=== PATIENT | male | born 1980 ===

== ENCOUNTER 2017-05-22 06:43 | Emergency (ER) | payer BC, OTHER ==
[2017-05-22 06:43] VITALS: BMI 36.9
[2017-05-22 07:39] VITALS: TEMP 98.2
[2017-05-22] MEDS ORDERED: Sodium Chloride 0.9% 1,000 ML IV STA (08:03)
--- NOTE | 2017-05-22 08:08 | ED PDOC ---
Arrival/HPI - General Chief Complaint: Medical Clearance Time Seen by Provider: 05/22/17 08:01 Historian: Patient - History of Present Illness Narrative History of Present Illness (Text): 05/22/17 08:01 Riley Montano is a 37 year old male complaining of right-sided facial swelling for 3 days. Patient denies any fevers, chills, mouth pain or discomfort , or any other any other complaints at this time. PMD: Dr. Newton Time/Duration: < week Symptom Onset: Gradual Symptom Course: Unchanged Severity Level: Mild Activities at Onset: Light Context: Home Past Medical History - Provider Review Nursing Documentation Reviewed: Yes - Infectious Disease Hx of Infectious Diseases: None - Tetanus Immunization Tetanus Immunization: Unknown - Past Medical History Past Medical History: No Previous - Cardiac Hx Hypertension: Yes (no compliant with medication) - Pulmonary Hx Respiratory Disorders: No - Neurological Hx Neurological Disorder: No - HEENT Hx HEENT Disorder: No - Renal Hx Renal Disorder: No - Endocrine/Metabolic Hx Endocrine Disorders: No - Hematological/Oncological Hx Blood Disorders: No - Integumentary Hx Dermatological Disorder: No - Musculoskeletal/Rheumatological Hx Musculoskeletal Disorders: No - Gastrointestinal Hx Gastrointestinal Disorders: No - Genitourinary/Gynecological Hx Genitourinary Disorders: No - Psychiatric Hx Depression: No Hx Emotional Abuse: No Hx Physical Abuse: No Hx Substance Use: No - Past Surgical History Past Surgical History: No Previous - Suicidal Assessment Feels Threatened In Home Enviroment: No Family/Social History - Physician Review Nursing Documentation Reviewed: Yes Family/Social History: No Known Family HX Smoking Status: Light Smoker < 10 Cigarettes Daily Hx Alcohol Use: Yes Frequency of alcohol use: Socially Amount per day: 10 (one bottle of bicardi a day for two years) Hx Substance Use: No Hx Substance Use Treatment: No Allergies/Home Meds Allergies/Adverse Reactions: Allergies No Known Allergies Allergy (Verified 05/22/17 07:41) Physical Exam - Physical Exam Narrative Physical Exam (Text): - Review of Systems Constitutional: absent: Fatigue, Weight Change, Fevers Eyes: Normal ENT: Normal Respiratory: Normal absent: SOB, Cough, Sputum Cardiovascular: Normal absent: Chest pain, Palpitations, Syncope Gastrointestinal: Normal absent: Abdominal pain, Diarrhea, Nausea, Vomiting Genitourinary: Normal. absent: Dysuria, Frequency, Hematuria Musculoskeletal: Normal. absent: Arthralgias, Back Pain, Neck Pain Skin: Normal Neurological: Normal absent: Focal Weakness Endocrine: Normal Hemo/Lymphatic: Normal Psychiatric: Normal - Physical exam Patient appears age appropriate, speaking full sentences without difficulty. - Systems Exam Head: Present: Atraumatic, Normocephalic. No periorbital cellulitis. Swelling around zygoma. Pupils: Present: PERRL Extraocular Muscles: No pain in EOMI Conjunctiva: Present: Normal Mouth: Present: Moist Mucous Membranes. No dental pain or discomfort. Gingiva appears normal. Neck: Present: Normal Range of Motion. No: MIDLINE TENDERNESS, Paraspinal Tenderness Respiratory/Chest: Present: Clear to Auscultation, Good Air Exchange. No: Respiratory Distress, Accessory Muscle Use, Tachypnic Cardiovascular: Present: Regular Rate and Rhythm, Normal S1, S2, Peripheral Pulses Present. No: Murmurs Abdomen: Present: Normal Bowel Sounds, No: Tenderness, Peritoneal Signs, Rebound, Guarding, Distention Back: Present: Normal Inspection. No: Midline Tenderness, Paraspinal Tenderness Upper Extremity: Present: Normal Inspection. No: Cyanosis, Edema Lower Extremity: Present: Normal Inspection. No: Edema Neurological: Present: GCS=15, Speech Normal, cranial nerves II through XII fully intact with no cerebellar abnormality, neuro-sensory fully intact. No focal neurological deficits. Skin: Present: Warm, Dry, Normal Color. No: Rashes Lymphatic: Present: OX3, NI, NC Psychiatric: Present: Alert, Oriented x 3, Normal Insight, Normal Concentration 05/22/17 08:34 Vital Signs Reviewed: Yes Vital Signs Temp Pulse Resp BP Pulse Ox 05/22/17 09:24 66 18 150/82 97 05/22/17 07:34 98.2 F 84 16 143/93 H 96 Temperature: Afebrile Blood Pressure: Hypertensive Pulse: Regular Respiratory Rate: Normal Appearance: Positive for: Well-Appearing, Non-Toxic, Comfortable Pain Distress: None Mental Status: Positive for: Alert and Oriented X 3 Medical Decision Making ED Course and Treatment: 05/22/17 08:00 Impression: 37 year old male complaining of right-sided facial swelling for 3 days. On physical exam, no pain in EOMI, no periorbital cellulitis, and swelling noted around zygoma. Patient denies any dental pain or discomfort. Gingiva appears normal. Differential Diagnosis included but are not limited to: Abscess vs. Cellulitis Plan: -- Maxillofacial CT w/o contrast -- Blood Culture -- Labs -- Cleosin, Toradol, and IV Fluids -- Reassess and disposition Prior Visits: Notes and results from previous visits were reviewed. Patient last seen in the ED on 07/30/14 for left arm weakness that day. Patient was discharged home. Progress Notes: 05/22/17 09:29 CT MAXILLOFACIAL BONES WITHOUT CONTRAST: Dictator : Wes Shepherd MD FINDINGS: NASAL BONES:Unremarkable. ORBITS:Unremarkable. PARANASAL SINUSES/ MASTOIDS:Clear. MAXILLA:Unremarkable. MANDIBLE/ TEMPOROMANDIBULAR JOINTS: There is subcutaneous edema and swelling anterior to the right side of the mandible. There is no evidence of a discrete abscess. There is no bony destruction in the mandible to suggest a dental abscess. SKULL BASE:Unremarkable. TEMPORAL BONES:Middle ears and mastoid grossly unremarkable. OTHER FINDINGS:None. IMPRESSION: There is subcutaneous edema and swelling anterior to the right side of the mandible. There is no evidence of a discrete abscess. There is no bony destruction in the mandible to suggest a dental abscess. 05/22/17 09:41 pt will be dc'd with PO abx instructed to f/u with ENT specialist outpatient pt in no distress, states he feels comfortable being dc'd home with outpatient f /u ENT paged Pt states he understands to return to the ER right away for new or worsening symptoms or for inability to f/u with PMD or specialist as instructed. Patient states that he fully agrees with and understands discharge instructions. States that he agrees with the plan and disposition. Verbalized and repeated discharge instructions and plan. I have given the patient opportunity to ask any additional questions. 05/22/17 09:[address] Spencer, agrees with plan, states for pt to f/u outpatient later this week pt aware of and agrees with plan - Lab Interpretations Lab Results: 05/22/17 08:00 05/22/17 08:00 Lab Results 05/22/17 08:00: Sodium 145, Potassium 4.2, Chloride 107, Carbon Dioxide 24, Anion Gap 18, BUN 8, Creatinine 0.5, Est GFR ( Amer) > 60, Est GFR (Non- Af Amer) > 60, Random Glucose 110, Calcium 9.1, Total Bilirubin 0.4, AST 83 H, ALT 94 H, Alkaline Phosphatase 94, Total Protein 7.6, Albumin 4.5, Globulin 3.1 , Albumin/Globulin Ratio 1.5 05/22/17 08:00: WBC 9.7, RBC 4.71, Hgb 15.9, Hct 45.7, MCV 97.0, MCH 33.8, MCHC 34.8, RDW 13.2, Plt Count 138, MPV 9.8, Gran % 68.4 H, Lymph % (Auto) 21.3 L, Dodge % (Auto) 8.9 H, Eos % (Auto) 1.1 L, Baso % (Auto) 0.3, Gran # 6.66 H, Lymph # 2.1, Dodge # 0.9 H, Eos # 0.1, Baso # 0.03, Corrected WBC (Man) Cancelled , Neutrophils % (Manual) Cancelled, Band Neutrophils % Cancelled, Lymphocytes % (Manual) Cancelled, Atypical Lymphs % Cancelled, Monocytes % (Manual) Cancelled , Eosinophils % (Manual) Cancelled, Basophils % (Manual) Cancelled, Metamyelocytes % Cancelled, Myelocytes % Cancelled, Promyelocytes % Cancelled, Nucleated RBC % Cancelled, Hypersegmented Polys Cancelled, Immature Lymphocytes Cancelled, Blast Cells Cancelled, Smudge Cells Cancelled, Toxic Granulation Cancelled, Dohle Bodies Cancelled, Radha Rods Cancelled, Platelet Evaluation Cancelled, Plt Clumps, EDTA Cancelled, Large Platelets Cancelled, Giant Platelets Cancelled, Polychromasia Cancelled, Hypochromasia Cancelled, Hyperchromasia Cancelled, Poikilocytosis (manual Cancelled, Basophilic Stippling Cancelled, Anisocytosis (manual) Cancelled, Microcytosis (manual) Cancelled, Macrocytosis (manual) Cancelled, Spherocytes Cancelled, Sickle Cells Cancelled, Target Cells Cancelled, Tear Drop Cells Cancelled, Ovalocytes Cancelled, Stomatocytes Cancelled, Helmet Cells Cancelled, Buffalo Rings Cancelled , Kathleen Cells Cancelled, Acanthocytes (Spur) Cancelled, Rouleaux Cancelled, Schistocytes Cancelled I have reviewed the lab results: Yes - RAD Interpretation Radiology Orders: 05/22/17 08:03 MAXILLOFACIAL W/O CONTRAST [CT] Stat - Medication Orders Current Medication Orders: Discontinued Medications Clindamycin Phosphate 600 mg/ (Sodium Chloride) 54 mls @ 108 mls/hr IVPB STAT STA PRN Reason: Protocol Stop: 05/22/17 08:33 Last Admin: 05/22/17 08:25 Dose: 108 mls/hr Sodium Chloride (Sodium Chloride 0.9%) 1,000 mls @ 1,000 mls/hr IV .Q1H STA Stop: 05/22/17 09:02 Last Admin: 05/22/17 08:24 Dose: 1,000 mls/hr Ketorolac Tromethamine (Toradol) 15 mg IVP STAT STA Stop: 05/22/17 08:04 Last Admin: 05/22/17 08:23 Dose: 15 mg - Scribe Statement The provider has reviewed the documentation as recorded by the Jesus Berman Provider Scribe Attestation: All medical record entries made by the Scribe were at my direction and personally dictated by me. I have reviewed the chart and agree that the record accurately reflects my personal performance of the history, physical exam, medical decision making, and the department course for this patient. I have also personally directed, reviewed, and agree with the discharge instructions and disposition. Disposition/Present on Arrival - Present on Arrival Any Indicators Present on Arrival: No History of DVT/PE: No History of Uncontrolled Diabetes: No Urinary Catheter: No History of Decub. Ulcer: No History Surgical Site Infection Following: None - Disposition Have Diagnosis and Disposition been Completed?: Yes Diagnosis: Facial swelling Disposition: HOME/ ROUTINE Disposition Time: 09:42 Patient Plan: Discharge Patient Problems: Current Active Problems Problem Status Onset Facial swelling Acute Condition: GOOD Discharge Instructions (ExitCare): Cellulitis (ED) Additional Instructions: PLEASE RETURN TO THE EMERGENCY DEPARTMENT FOR NEW OR WORSENING SYMPTOMS. RETURN RIGHT AWAY IF YOU CANNOT FOLLOW UP WITH YOUR PRIMARY CARE DOCTOR, CLINIC, OR SPECIALIST IN 1-2 DAYS. Prescriptions: Amoxicillin/Clavulanate [Augmentin 875 MG-125 MG] 1 tab PO BID #14 tab Referrals: Jacob Newton MD [Primary Care Provider] - Follow up with primary Anshul Hyman DO [Staff Provider] - Follow up with primary Forms: [employer] (Angolan), WORK NOTE
[2017-05-22 08:30] LABS: BASO # 0.03 K/mm3 (0.0-2.0); BASO % 0.3 % (0.0-3.0); EOS # 0.1 (0.0-0.7); EOS % 1.1 % (1.5-5.0); GRAN # 6.66 (1.4-6.5); GRAN % 68.4 % (50.0-68.0); HEMATOCRIT 45.7 % (42.0-52.0); LYMPH # 2.1 (1.2-3.4); LYMPH % 21.3 % (22.0-35.0); MEAN CORPUSCULAR HEMOGLOBIN 33.8 pg (25.0-35.0); MEAN CORPUSCULAR HGB CONC 34.8 g/dl (31.0-37.0); MEAN PLATELET VOLUME 9.8 fl (7.0-11.0); MONO # 0.9 (0.1-0.6); MONO % 8.9 % (1.0-6.0); RED CELL DISTRIBUTION WIDTH 13.2 % (11.5-14.5); WHITE BLOOD COUNT 9.7 10^3/ul (4.5-11.0)
[2017-05-22 08:46] LABS: ALB/GLOB RATIO 1.5 (1.1-1.8); ALKALINE PHOSPHATASE 94 U/L (38-133); ALT/SGPT 94 U/L (7-56); AST/SGOT 83 U/L (15-59); BILIRUBIN,TOTAL 0.4 mg/dL (0.2-1.3); BLOOD UREA NITROGEN 8 mg/dL (7-21); CALCIUM 9.1 mg/dL (8.4-10.5); CARBON DIOXIDE 24 mmol/L (21-33); CHLORIDE 107 mmol/L (98-107); GFR AFRICAN-AMERICAN > 60; GLUCOSE,RANDOM 110 mg/dL (70-110); POTASSIUM 4.2 mmol/L (3.6-5.0); SODIUM 145 mmol/L (132-148); TOTAL PROTEIN 7.6 g/dL (5.8-8.3)
--- NOTE | 2017-05-22 09:15 | CT ---
PROCEDURE: CT MAXILLOFACIAL BONES WITHOUT CONTRAST HISTORY: abscess COMPARISON: None TECHNIQUE: Contiguous axial CT images of the maxillofacial bones were obtained. Coronal and sagittal reformats were generated. Radiation dose: Total exam DLP = 737 mGy-cm. This CT exam was performed using one or more of the following dose reduction techniques: Automated exposure control, adjustment of the mA and/or kV according to patient size, and/or use of iterative reconstruction technique. FINDINGS: NASAL BONES: Unremarkable. ORBITS: Unremarkable. PARANASAL SINUSES/ MASTOIDS: Clear. MAXILLA: Unremarkable. MANDIBLE/ TEMPOROMANDIBULAR JOINTS: There is subcutaneous edema and swelling anterior to the right side of the mandible. There is no evidence of a discrete abscess. There is no bony destruction in the mandible to suggest a dental abscess. SKULL BASE: Unremarkable. TEMPORAL BONES: Middle ears and mastoid grossly unremarkable. OTHER FINDINGS: None. IMPRESSION: There is subcutaneous edema and swelling anterior to the right side of the mandible. There is no evidence of a discrete abscess. There is no bony destruction in the mandible to suggest a dental abscess.
[2017-05-22 09:24] VITALS: BP 150/82; PULSE 66; RESP 18; O2SAT 97
== END 2017-05-22 09:56 | disposition home or self-care (01) ==
LOC: ED 06:43
DX: R22.0 Localized swelling, mass and lump, head (principal)
CPT/HCPCS: 70486; 80053; 85025; 87040; 96365; 96375; 99282; J1885; J7040

== ENCOUNTER 2018-01-26 23:11 | Emergency (ER) | payer OTHER ==
[2018-01-26 23:31] VITALS: BMI 34.3
[2018-01-26 23:40] VITALS: BP 138/81; PULSE 91; RESP 16; TEMP 98.4; O2SAT 100
--- NOTE | 2018-01-26 23:42 | ED PDOC ---
Arrival/HPI - General Chief Complaint: Alcohol Ingestion Time Seen by Provider: 01/26/18 23:32 Historian: Patient - History of Present Illness Narrative History of Present Illness (Text): 01/26/18 23:40 38 year old male, with no significant past medical history, presents to the Emergency department for alcohol intoxication tonight. Patient admits to drinking tonight and informs of a laceration located near his left eyebrow. Patient informs hitting his head denies any loss of consciousness. Patient denies any fever, chills, nausea, vomiting, diarrhea, abdominal pain, chest pain , shortness of breath, trauma or any other complaints. Time/Duration: Prior to Arrival Symptom Onset: Gradual Symptom Course: Unchanged Activities at Onset: Light Past Medical History - Provider Review Nursing Documentation Reviewed: Yes - Infectious Disease Hx of Infectious Diseases: None - Tetanus Immunization Tetanus Immunization: Unknown - Past Medical History Past Medical History: No Previous - Cardiac Hx Hypertension: Yes (no compliant with medication) - Pulmonary Hx Respiratory Disorders: No - Neurological Hx Neurological Disorder: No - HEENT Hx HEENT Disorder: No - Renal Hx Renal Disorder: No - Endocrine/Metabolic Hx Endocrine Disorders: No - Hematological/Oncological Hx Blood Disorders: No - Integumentary Hx Dermatological Disorder: No - Musculoskeletal/Rheumatological Hx Musculoskeletal Disorders: No - Gastrointestinal Hx Gastrointestinal Disorders: No - Genitourinary/Gynecological Hx Genitourinary Disorders: No - Psychiatric Hx Depression: No Hx Emotional Abuse: No Hx Physical Abuse: No Hx Substance Use: No - Past Surgical History Past Surgical History: No Previous - Suicidal Assessment Feels Threatened In Home Enviroment: No Family/Social History - Physician Review Nursing Documentation Reviewed: Yes Family/Social History: No Known Family HX Smoking Status: Light Smoker < 10 Cigarettes Daily Hx Alcohol Use: Yes Amount per day: 10 (one bottle of bicardi a day for two years) Hx Substance Use: No Hx Substance Use Treatment: No Allergies/Home Meds Allergies/Adverse Reactions: Allergies No Known Allergies Allergy (Verified 01/26/18 23:31) Home Medications: Home Meds Medication Instructions Recorded Confirmed No Known Home Med 01/26/18 01/26/18 Review of Systems - Physician Review All systems were reviewed & negative as marked: Yes - Review of Systems Constitutional: Other (Intoxicated). absent: Fevers Eyes: Normal ENT: Normal Respiratory: Normal. absent: SOB Cardiovascular: Normal. absent: Chest Pain Gastrointestinal: Normal. absent: Abdominal Pain, Diarrhea, Nausea, Vomiting Genitourinary Male: Normal Musculoskeletal: Normal Skin: Laceration Neurological: Normal. absent: Headache Endocrine: Normal Hemo/Lymphatic: Normal Psychiatric: Normal Physical Exam Vital Signs Reviewed: Yes Vital Signs Temp Pulse Resp BP Pulse Ox 01/26/18 23:39 98.4 F 91 H 16 138/81 100 Temperature: Afebrile Blood Pressure: Normal Pulse: Tachycardic Respiratory Rate: Normal Appearance: Positive for: Well-Appearing, Comfortable Pain Distress: None Mental Status: Positive for: Alert and Oriented X 3 - Systems Exam Head: Present: Atraumatic, Normocephalic Pupils: Present: PERRL Extroacular Muscles: Present: EOMI Conjunctiva: Present: Normal Respiratory/Chest: Present: Clear to Auscultation, Good Air Exchange. No: Respiratory Distress, Accessory Muscle Use Cardiovascular: Present: Regular Rate and Rhythm, Normal S1, S2. No: Murmurs Upper Extremity: Present: Normal Inspection. No: Cyanosis, Edema Lower Extremity: Present: Normal Inspection. No: Edema Neurological: Present: GCS=15, CN II-XII Intact, Speech Normal Skin: Present: Warm, Dry, Normal Color, Laceration (left eyebrow). No: Rashes Psychiatric: Present: Alert, Oriented x 3, Intoxicated Medical Decision Making ED Course and Treatment: 01/26/18 23:44 Impression: 38 year old male presents to the Emergency department for alcohol intoxication and left eyebrow laceration. Plan: -- CT of Head -- Reassess and disposition Progress Notes: 01/27/18 01:43 CT of head reviewed by radiologist, shows: FINDINGS: Limitations: Motion artifact - mild. Brain: Mild atrophy. No definite intracranial hemorrhage. No mass. No definite edema. Ventricles: No hydrocephalus. Bones/joints: No acute fracture. Soft tissues: LEFT frontal/periorbital soft tissue swelling. Tiny calcification or foreign body along left periorbital region. Sinuses: Scattered minimal mucosal thickening. Mastoid air cells: No mastoid effusion. Orbits: Unremarkable as visualized. IMPRESSION: 1. No definite intracranial hemorrhage. 2. Incidental/non-acute findings are described above 01/27/18 03:13 Upon reassessment, patient was observed to have an abrasion instead of a laceration on his left eyebrow. No foreign body object was identified. - RAD Interpretation Radiology Orders: 01/26/18 23:36 HEAD W/O CONTRAST [CT] Stat - Scribe Statement The provider has reviewed the documentation as recorded by the Scribe Feroz Davidson. All medical record entries made by the Scribe were at my direction and personally dictated by me. I have reviewed the chart and agree that the record accurately reflects my personal performance of the history, physical exam, medical decision making, and the department course for this patient. I have also personally directed, reviewed, and agree with the discharge instructions and disposition. Disposition/Present on Arrival - Present on Arrival Any Indicators Present on Arrival: No History of DVT/PE: No History of Uncontrolled Diabetes: No Urinary Catheter: No History of Decub. Ulcer: No History Surgical Site Infection Following: None - Disposition Have Diagnosis and Disposition been Completed?: Yes Diagnosis: Head injury, Abrasion head Disposition: HOME/ ROUTINE Disposition Time: 03:15 Condition: GOOD Discharge Instructions (ExitCare): Closed Head Injury (DC), Skin Abrasions (DC) Referrals: Bharat Matrimonyestrella Miller, [Primary Care Provider] - Follow up with primary Forms: [employer] (Thai)
--- NOTE | 2018-01-27 01:42 | CT ---
EXAM: CT Head Without Intravenous Contrast CLINICAL HISTORY: 38 years old, male; Injury or trauma; Injury Head injury; Initial encounter; Abrasion; Forehead and head, generalized TECHNIQUE: Axial computed tomography images of the head/brain without intravenous contrast. All CT scans at this facility use one or more dose reduction techniques, viz.: automated exposure control; ma/kV adjustment per patient size (including targeted exams where dose is matched to indication; i.e. head); or iterative reconstruction technique. Coronal and sagittal reformatted images were created and reviewed. COMPARISON: No relevant prior studies available. FINDINGS: Limitations: Motion artifact - mild. Brain: Mild atrophy. No definite intracranial hemorrhage. No mass. No definite edema. Ventricles: No hydrocephalus. Bones/joints: No acute fracture. Soft tissues: LEFT frontal/periorbital soft tissue swelling. Tiny calcification or foreign body along left periorbital region. Sinuses: Scattered minimal mucosal thickening. Mastoid air cells: No mastoid effusion. Orbits: Unremarkable as visualized. IMPRESSION: 1. No definite intracranial hemorrhage. 2. Incidental/non-acute findings are described above.
== END 2018-01-27 03:14 | disposition home or self-care (01) ==
LOC: ED 23:11
DX: S00.91XA Abrasion of unspecified part of head, initial encounter (principal); X58.XXXA Exposure to other specified factors, initial encounter; F17.210 Nicotine dependence, cigarettes, uncomplicated; I10 Essential (primary) hypertension

== ENCOUNTER 2018-10-21 09:57 | Emergency (ER) | payer OTHER ==
[2018-10-21 09:59] VITALS: BMI 33.4
--- NOTE | 2018-10-21 10:30 | ED PDOC ---
Arrival/HPI - General Chief Complaint: Alcohol Ingestion Time Seen by Provider: 10/21/18 10:24 Historian: Patient - History of Present Illness Narrative History of Present Illness (Text): 10/21/18 10:25 38 y/o male, pmh including htn, nkda, biba for etoh intoxication at the counselor office x 2 hours (as per patient). Pt. stated that he drinks socially, went to the counselor about his drinking habit, doesn't get tremors/shakes /nausea/vomiting/diarrhea when not drinking, just wanna hear advice from the counselor. Counselor send the patient here to the ER as he is intoxicated and unable to drive himself home. Pt. has htn, didn't take his medication today so he is here. Pt. is not having any dental pain in the ER, no jaw pain or swelling, has pain medication at home for his toothache and antibiotic. Past Medical History - Provider Review Nursing Documentation Reviewed: Yes - Infectious Disease Hx of Infectious Diseases: None - Tetanus Immunization Tetanus Immunization: Unknown - Past Medical History Past Medical History: No Previous - Cardiac Hx Cardiac Disorders: Yes Hx Hypertension: Yes (no compliant with medication) - Pulmonary Hx Respiratory Disorders: No - Neurological Hx Neurological Disorder: No - HEENT Hx HEENT Disorder: No - Renal Hx Renal Disorder: No - Endocrine/Metabolic Hx Endocrine Disorders: No - Hematological/Oncological Hx Blood Disorders: No - Integumentary Hx Dermatological Disorder: No - Musculoskeletal/Rheumatological Hx Musculoskeletal Disorders: No - Gastrointestinal Hx Gastrointestinal Disorders: No - Genitourinary/Gynecological Hx Genitourinary Disorders: No - Psychiatric Hx Psychophysiologic Disorder: No Hx Substance Use: No - Past Surgical History Past Surgical History: No Previous - Suicidal Assessment Feels Threatened In Home Enviroment: No Family/Social History - Physician Review Nursing Documentation Reviewed: Yes Family/Social History: Unknown Family HX Smoking Status: Light Smoker < 10 Cigarettes Daily Hx Alcohol Use: Yes Frequency of alcohol use: Few days per week Amount per day: 10 (one bottle of bicardi a day for two years) Hx Substance Use: No Hx Substance Use Treatment: No Allergies/Home Meds Allergies/Adverse Reactions: Allergies No Known Allergies Allergy (Verified 10/21/18 09:59) Home Medications: Home Meds Medication Instructions Recorded Confirmed No Known Home Med 01/26/18 10/21/18 Review of Systems - Review of Systems Constitutional: absent: Fatigue, Fevers Eyes: absent: Vision Changes Respiratory: absent: SOB, Cough Cardiovascular: absent: Chest Pain Gastrointestinal: absent: Abdominal Pain, Nausea, Vomiting Neurological: absent: Headache, Dizziness Psychiatric: absent: Anxiety, Depression, Suicidal Ideation Physical Exam Vital Signs Reviewed: Yes Vital Signs Temp Pulse Resp BP Pulse Ox 10/21/18 09:58 99.0 F 112 H 18 170/112 H 95 Temperature: Afebrile Blood Pressure: Hypertensive Pulse: Tachycardic Respiratory Rate: Normal Appearance: Positive for: Well-Appearing, Non-Toxic, Comfortable Pain Distress: None Mental Status: Positive for: Alert and Oriented X 3 - Systems Exam Head: Present: Atraumatic, Normocephalic Pupils: Present: PERRL Extroacular Muscles: Present: EOMI Conjunctiva: Present: Normal Mouth: Present: Moist Mucous Membranes Neck: Present: Normal Range of Motion Respiratory/Chest: Present: Clear to Auscultation, Good Air Exchange. No: Respiratory Distress, Accessory Muscle Use Cardiovascular: Present: Regular Rate and Rhythm, Normal S1, S2. No: Murmurs Abdomen: No: Tenderness, Distention, Peritoneal Signs Back: Present: Normal Inspection Upper Extremity: Present: Normal Inspection. No: Cyanosis, Edema Lower Extremity: Present: Normal Inspection. No: Edema Neurological: Present: GCS=15, CN II-XII Intact, Speech Normal Skin: Present: Warm, Dry, Normal Color. No: Rashes Psychiatric: Present: Alert, Oriented x 3, Normal Insight, Normal Concentration Medical Decision Making ED Course and Treatment: 10/21/18 10:26 -FS -AYAH albertd -Observe and reassess 10/21/18 10:45 -FS 102 -AYAH donahue, will come to evaluate the patient. 10/21/18 13:00 -Pt. is medically clear and stable at this time for psychiatric evaluation -Pt. evaluated by the AYAH Gabriel, stated that he is clear from psychiatrically -Pt. is walking with normal gait and posture, no tremors, has friend to come pick him up. -Pt. has no nausea/vomiting/diarrhea/abdominal pain or any signs of withdrawal, not homocidal or suicidal, detox list given as [facility] doesn't have detox unit at this time, request to be discharged home. -Discharge home with education on follow up with outpatient detox clinic and pmd within 2 days, return to the ER for any new or worsening signs or symptoms. - PA / 911 TELECOMMUNICATOR / Resident Statement MD/DO has reviewed & agrees with the documentation as recorded. Disposition/Present on Arrival - Present on Arrival Any Indicators Present on Arrival: No History of DVT/PE: No History of Uncontrolled Diabetes: No Urinary Catheter: No History of Decub. Ulcer: No History Surgical Site Infection Following: None - Disposition Have Diagnosis and Disposition been Completed?: Yes Diagnosis: Alcohol intoxication Disposition: HOME/ ROUTINE Disposition Time: 13:00 Patient Plan: Discharge Patient Problems: Current Active Problems Problem Status Onset Alcohol intoxication Acute Condition: GOOD Additional Instructions: -Discharge home with education on follow up with outpatient detox clinic and pmd within 2 days, return to the ER for any new or worsening signs or symptoms. Referrals: FAMILY PROVIDER,NO [Primary Care Provider] - Follow up with primary [facility] [Outside] - Follow up with primary Forms: [facility] (Pashto), WORK NOTE
[2018-10-21 10:58] VITALS: RESP 17
[2018-10-21 12:28] VITALS: BP 149/93; PULSE 89; TEMP 98.8; O2SAT 96
== END 2018-10-21 13:02 | disposition home or self-care (01) ==
LOC: ED 09:57
DX: F10.129 Alcohol abuse with intoxication, unspecified (principal)